=== PATIENT | male | born 1980 | race Caucasian/White ===

== ENCOUNTER 2024-07-28 14:01 | Emergency (ER) | payer OTHER, SELFPAY ==
[2024-07-28 15:07] LABS: Absolute Basophils 0.1 K/uL (0-0.5); Absolute Eosinophils 0.4 K/uL (0-0.5); Absolute Lymphocytes (CBC) 1.7 K/uL (0.7-4.9); Absolute Monocytes 1.3 K/uL (0.1-1.3); Absolute Neutrophil 6.5 K/uL (1.8-8.0); Basophils % 0.8 % (0-1.3); Eosinophils % 3.9 % (0-4.4); Hematocrit 38.9 % (39.6-49.0); Hemoglobin 13.5 g/dL (13.6-17.9); Lymphocytes % 17.4 % (15.3-44.8); MCH 31.6 pg (27.0-35.0); MCHC 34.8 g/dL (32.0-36.0); MCV 90.7 fL (80-100); MPV 7.8 fL (7.6-11.3); Monocytes % 12.6 % (3.3-12.3); Neutrophils % 65.3 % (41.7-73.7); Nucleated Red Blood Cells % 0.1 % (0-0); Platelets 293 thou/uL (152-406); RBC Red Blood Cell Count 4.28 M/uL (4.33-5.43); Red Cell Distribution Width 13.2 % (12.1-15.2)
[2024-07-28] MEDS ORDERED: NA CHLORIDE 0.9% 1,000 ML ONE (15:13)
[2024-07-28 15:35] LABS: ALT/SGPT 26 U/L (16-61); AST/SGOT 15 U/L (15-37); Albumin 3.6 g/dL (3.4-5.0); Albumin/Globulin Ratio 1.1 (1.1-1.8); Alkaline Phosphatase 96 U/L (45-117); Anion Gap 8.8 mEq/L (5.0-15.0); BUN Blood Urea Nitrogen 8 mg/dL (7-18); Bicarbonate 28 mEq/L (21-32); Bilirubin Total 0.4 mg/dL (0.2-1.0); Creatine Phosphokinase 159 U/L (39-308); Globulin 3.4 g/dL (2.3-3.5); Glomerular Filtration Rate 71 ml/min (=/>90); Glucose Level 88 mg/dL (74-106); Magnesium 2.4 mg/dL (1.6-2.4); Potassium 3.8 mEq/L (3.5-5.1); Sodium Level 136 mEq/L (136-145); Thyroid Stimulating Hormone 0.557 uIU/mL (0.358-3.740)
[2024-07-28 15:52] LABS: Bilirubin Direct < 0.2 mg/dL (0-0.2); Bilirubin Indirect, Calculated 0.2 mg/dL (0.2-0.8)
--- NOTE | 2024-07-28 16:46 | EDPHYS ---
Physician Documentation [facility] Name: Daiwt Walters Age: 43 yrs Sex: Male : 1980 Arrival Date: 07/28/2024 Time: 14:01 Bed 8 Private MD: ED Physician Nick Navarro HPI: 07/28 16:58 This 43 yrs old Male presents to ER via Wheelchair with complaints of LITHIUM TOXICITY rt R/O. 16:58 Patient presents to the ED with confusion. About a month ago, the patient was at a rt psychiatric hospital, had multiple medications changed including having lithium be added. The patient has had progressively worsening confusion, worse over the past few days. Was seen by Dr. Rocha office today, was sent for evaluation for possible lithium toxicity. Denies other acute complaints at this time, symptoms are moderate in severity, no other aggravating or alleviating factors.. Historical: - Allergies: 14:20 No Known Allergies; db - PMHx: 14:20 Bipolar disorder; Anxiety; Depressive disorder; db - Immunization history:: Adult Immunizations unknown. - Infectious Disease History:: Denies. - Social history:: Smoking status: Patient denies any tobacco usage or history of. - Family history:: not pertinent. ROS: 16:58 Constitutional: Negative for fever, chills, and weight loss, Cardiovascular: Negative rt for chest pain, palpitations, and edema, Respiratory: Negative for shortness of breath, cough, wheezing, and pleuritic chest pain, Abdomen/GI: Negative for abdominal pain, nausea, vomiting, diarrhea, and constipation, MS/Extremity: Negative for injury and deformity, Skin: Negative for injury, rash, and discoloration, 16:58 Neuro: Positive for altered mental status, Negative for loss of consciousness, Exam: 16:58 Constitutional: This is a well developed, well nourished patient who is awake, alert, rt and in no acute distress. Head/Face: Normocephalic, atraumatic. Chest/axilla: Normal chest wall appearance and motion. Nontender with no deformity. No lesions are appreciated. Cardiovascular: Regular rate and rhythm with a normal S1 and S2. No gallops, murmurs, or rubs. Normal PMI, no JVD. No pulse deficits. Respiratory: Lungs have equal breath sounds bilaterally, clear to auscultation and percussion. No rales, rhonchi or wheezes noted. No increased work of breathing, no retractions or nasal flaring. Abdomen/GI: Soft, non-tender, with normal bowel sounds. No distension or tympany. No guarding or rebound. No evidence of tenderness throughout. Skin: Warm, dry with normal turgor. Normal color with no rashes, no lesions, and no evidence of cellulitis. 16:58 ECG was reviewed by the Attending Physician. 16:58 Neuro: Somewhat confused, withdrawn, moves all 4 extremities equally, Vital Signs: 14:17 BP 116 / 81; Pulse 96; Resp 16; Temp 98.7; Pulse Ox 96% ; db 15:00 BP 120 / 78; Pulse 87; Resp 18; Pulse Ox 99% on R/A; ph 16:00 BP 114 / 87; Pulse 82; Resp 16; Pulse Ox 97% on R/A; ph 17:00 BP 118 / 72; Pulse 86; Resp 17; Temp 98; Pulse Ox 97% on R/A; ph MDM: 14:24 Medical Screening Exam initiated rt 17:19 Differential Diagnosis [place] toxicity, medication side effect, electrolyte rt disturbance, dehydration. Data reviewed: vital signs, nurses notes, lab test result(s), EKG. Consideration of Admission/Observation Escalation of care including admission/observation considered. I considered the following discharge prescriptions or medication management in the emergency department Medications were administered in the Emergency Department. See MAR. Test considered but Not performed: Other Details Patient has unremarkable labs in the emergency department, does seem to be improving after IV fluids, I discussed obtaining urinalysis, CT scan of the head with family, they state that since he is improving, they will see how he does at home and follow-up with his psychiatrist. Return precautions were discussed.. Counseling: I had a detailed discussion with the patient and/or guardian regarding the historical points, exam findings, and any diagnostic results supporting the discharge/admit diagnosis, lab results, radiology results, the need for outpatient follow up, to return to the emergency department if symptoms worsen or persist or if there are any questions or concerns that arise at home. Response to treatment: the patient's symptoms have markedly improved after treatment. 07/28 14:39 Order name: Basic Metabolic Panel; Complete Time: 16:14 rt 07/28 14:39 Order name: CBC with Diff; Complete Time: 16:14 rt 05 14:39 Order name: LFT's; Complete Time: 16:14 rt 07/28 14:39 Order name: Magnesium; Complete Time: 16:14 rt 07/28 14:39 Order name: Troponin HS; Complete Time: 16:14 rt 07/28 14:39 Order name: AMMONIA; Complete Time: 16:14 rt 07/28 14:39 Order name: CPK; Complete Time: 16:14 rt 07/28 14:39 Order name: TSH; Complete Time: 16:14 rt 07/28 14:44 Order name: [place]; Complete Time: 16:14 ph 05 14:39 Order name: Cardiac monitoring; Complete Time: 15:18 rt 07/28 14:39 Order name: EKG - Nurse/Tech; Complete Time: 15:18 rt 07/28 14:39 Order name: IV Saline Lock; Complete Time: 14:59 rt 07/28 14:39 Order name: Labs collected and sent; Complete Time: 14:59 rt 07/28 14:39 Order name: O2 Per Protocol; Complete Time: 14:45 rt 07/28 14:39 Order name: O2 Sat Monitoring; Complete Time: 14:45 rt EC:58 Rate is 84 beats/min. Rhythm is regular, Normal Sinus Rhythm with No ectopy. QRS [place] rt is Normal. [place] interval is normal. QRS interval is normal. QT interval is normal. No Q waves. T waves are Normal. No ST changes noted. Interpreted by me. Administered Medications: 15:18 Drug: NS 0.9% IV 1000 ml IV at 1000 ml once; to be given as a bolus over 60 minutes ph Route: IV; Rate: 1000 ml; Site: right forearm; 17:30 Follow up: Response: No adverse reaction; IV Status: Completed infusion; IV Intake: ph 1000ml Disposition Summary: 07/28/24 16:45 Discharge Ordered Notes: Location: Home rt Problem: new rt Symptoms: have improved rt Condition: Stable rt Diagnosis - Altered mental status, unspecified rt Followup: rt - With: Giovanny Mahoney MD - When: 2 - 3 days - Reason: Discharge Instructions: - Discharge Summary Sheet rt - Confusion rt Forms: - Medication Reconciliation Form rt - Antibiotic Education rt - Prescription Opioid Use rt - Patient Portal Instructions rt - Leadership Thank You Letter rt Signatures: Dispatcher [employer] EDEv Carrero RN RN ph Melissa Samuel RN RN db Nick Navarro MD MD rt Corrections: (The following items were deleted from the chart) 14:39 14:39 BASIC METABOLIC PANEL+C.LAB.BRZ ordered. EDMS EDMS 14:39 14:39 CBC+H.LAB.BRZ ordered. EDMS EDMS 14:40 14:39 HEPATIC FUNCTION+C.LAB.BRZ ordered. EDMS EDMS 14:40 14:39 MAGNESIUM+C.LAB.BRZ ordered. EDMS EDMS 14:40 14:39 Troponin High Sensitivity+C.LAB.BRZ ordered. EDMS EDMS 14:40 14:39 AMMONIA+C.LAB.BRZ ordered. EDMS EDMS 14:40 14:39 CREATINE PHOSPHOKINASE+C.LAB.BRZ ordered. EDMS EDMS 14:40 14:39 THYROID STIMULAT HORMONE+C.LAB.BRZ ordered. EDMS EDMS
--- NOTE | 2024-07-28 16:46 | ER ---
Nurse's Notes [facility] Name: Dawit Walters Age: 43 yrs Sex: Male : 1980 Arrival Date: 07/28/2024 Time: 14:01 Bed 8 Private MD: Diagnosis: Altered mental status, unspecified Presentation: 07/28 14:17 Chief complaint: Spouse and/or significant other states: PT WENT TO DR. BURTON FOR NOT db FOLLOWING CONVERSATIONS WELL, SENT TO ER FOR R/O LITHIUM TOXICITY. GRADUALLY GETTING WORSE X 1 WEEK. NOW HAS SLURRED SPEECH, CONFUSION, TREMORS. PT FOLLOWS COMMANDS. STARES OFF AND UNABLE TO FOCUS. Coronavirus screen: Client denies travel out of the [place] in the last 14 days. At this time, the client does not indicate any symptoms associated with coronavirus-19. Ebola Screen: Patient negative for fever greater than or equal to 101.5 degrees Fahrenheit, and additional compatible Ebola Virus Disease symptoms Patient denies exposure to infectious person. Patient denies travel to an Ebola-affected area in the 21 days before illness onset. No symptoms or risks identified at this time. Initial Sepsis Screen: Does the patient meet any 2 criteria? No. Patient's initial sepsis screen is negative. Does the patient have a suspected source of infection? No. Patient's initial sepsis screen is negative. Risk Assessment: Do you want to hurt yourself or someone else? Patient reports no desire to harm self or others. Onset of symptoms was July 28, 2024. 14:17 Method Of Arrival: Wheelchair db 14:17 Acuity: JENIFFER 3 db Triage Assessment: 14:20 General: Appears in no apparent distress. comfortable, Behavior is calm, cooperative, db flat. Pain: Denies pain. Neuro: Level of Consciousness is awake, alert, obeys commands, Oriented to person, place, time, situation. Respiratory: Airway is patent Respiratory effort is even, unlabored, Respiratory pattern is regular, symmetrical. Historical: - Allergies: 14:20 No Known Allergies; db - PMHx: 14:20 Bipolar disorder; Anxiety; Depressive disorder; db - Immunization history:: Adult Immunizations unknown. - Infectious Disease History:: Denies. - Social history:: Smoking status: Patient denies any tobacco usage or history of. - Family history:: not pertinent. Screenin:19 [facility] ED Fall Risk Assessment (Adult) History of falling in the last 3 months, ph including since admission No falls in past 3 months (0 pts) Confusion or Disorientation Yes (5 pts) Intoxicated or Sedated No (0 pts) Impaired Gait No (0 pts) Mobility Assist Device Used No (0 pt) Altered Elimination No (0 pt) Score/Fall Risk Level 0 - 2 = Low Risk Oriented to surroundings, Maintained a safe environment, Hourly rounding (assess needs \T\ fall precautionary measures) done. Abuse screen: Denies threats or abuse. Denies injuries from another. Nutritional screening: No deficits noted. Tuberculosis screening: No symptoms or risk factors identified. Assessment: 15:18 General: Appears in no apparent distress. Behavior is calm, cooperative. Pain: Denies ph pain. Neuro: Level of Consciousness is awake, obeys commands, Oriented to person, place, situation. Cardiovascular: Capillary refill < 3 seconds in bilateral fingers Patient's skin is warm and dry. Respiratory: Airway is patent Respiratory effort is even, unlabored, Respiratory pattern is regular, symmetrical. Derm: Skin is pink, warm \T\ dry. Vital Signs: 14:17 BP 116 / 81; Pulse 96; Resp 16; Temp 98.7; Pulse Ox 96% ; db 15:00 BP 120 / 78; Pulse 87; Resp 18; Pulse Ox 99% on R/A; ph 16:00 BP 114 / 87; Pulse 82; Resp 16; Pulse Ox 97% on R/A; ph 17:00 BP 118 / 72; Pulse 86; Resp 17; Temp 98; Pulse Ox 97% on R/A; ph ED Course: 14:03 Patient arrived in ED. mr 14:05 Nick Navarro MD is Attending Physician. rt 14:12 Ev Lindquist, RN is Primary Nurse. ph 14:20 Triage completed. db 14:20 Arm band placed on Patient placed in an exam room. db 14:59 [place] Sent. ph 14:59 TSH Sent. ph 14:59 CPK Sent. ph 14:59 AMMONIA Sent. ph 14:59 Basic Metabolic Panel Sent. ph 14:59 CBC with Diff Sent. ph 14:59 LFT's Sent. ph 14:59 Magnesium Sent. ph 14:59 Troponin HS Sent. ph 14:59 Initial lab(s) drawn, by me, sent to lab. Inserted saline lock: 20 gauge in right ph forearm, using aseptic technique. Blood collected. Flushed with 10 mL NS. 15:19 Patient has correct armband on for positive identification. Bed in low position. Call ph light in reach. Side rails up X 1. tableau report developer on. Pulse ox on. NIBP on. 16:45 Giovanny Mahoney MD is Referral Physician. rt 17:19 No provider procedures requiring assistance completed. IV discontinued, intact, ph bleeding controlled, No redness/swelling at site. Pressure dressing applied. Administered Medications: 15:18 Drug: NS 0.9% IV 1000 ml IV at 1000 ml once; to be given as a bolus over 60 minutes ph Route: IV; Rate: 1000 ml; Site: right forearm; 17:30 Follow up: Response: No adverse reaction; IV Status: Completed infusion; IV Intake: ph 1000ml Medication: 15:19 VIS not applicable for this client. ph Intake: 17:30 IV: 1000ml; Total: 1000ml. ph Outcome: 16:45 Discharge ordered by . rt 17:19 Patient left the ED. ayana 17:19 Discharged to home ambulatory, with family, ph 17:19 Condition: good 17:19 Discharge instructions given to patient, family, Instructed on discharge instructions, follow up and referral plans. Demonstrated understanding of instructions, follow-up care, Signatures: Ashley Pierce, Reg Reg mr Ev Lindquist, RN RN ph Breezy Brown RN RN [id number] Melissa Samuel RN RN db Nick Navarro MD MD rt
[2024-07-28 19:02] VITALS: BP 116/81; TEMP 98.7; O2SAT 96
--- NOTE | 2024-07-29 11:41 | EKG ---
Test Date: 2024-07-28 Test Time: 15:09:09 [employer]ed Circuit Board Layout Designer: PH MEASUREMENT RESULTS: Intervals: Rate: 84 TN: 144 QRSD: 86 QT: 396 QTc: 467 [place]: P: 42 TN: 144 QRS: 63 T: 48 INTERPRETIVE STATEMENTS: Normal sinus rhythm Normal ECG No previous ECG available for comparison Electronically Signed On 07-29-24 11:39:25 CDT by Walker Tomas
== END 2024-07-28 17:19 | disposition home or self-care (01) ==
LOC: ER 14:01
DX: R41.82 Altered mental status, unspecified (principal); F31.9 Bipolar disorder, unspecified
CPT/HCPCS: 36415; 80048; 80076; 80178; 82140; 82550; 83735; 84443; 84484; 85025; 93005; J7030